=== PATIENT | female | born 1980 | race Caucasian/White ===

== ENCOUNTER 2018-12-11 03:39 | Emergency (ER) | payer MEDICAID, OTHER ==
[~2018-12-11] VITALS: Ht 165.1 cm; Wt 77.0 kg
[2018-12-11] MEDS ORDERED: TETRACAINE 0.5% OPHTH DROPS 4ML OP ONE (05:00)
[2018-12-11] MEDS ORDERED: HYDROCODONE/ACETAMINOPHEN 5/325MG TABLET PO ONE (05:00)
[2018-12-11] MEDS ORDERED: AMOXICILLIN/POTASSIUM CLAVULANATE 875/125MG TAB PO ONE (05:00)
[2018-12-11] MEDS ORDERED: FLUORESCEIN SODIUM 1MG/STRIP OP ONE (05:00)
[2018-12-11] MEDS ORDERED: BALANCED SALT IRRIG SOLN 15ML IO ONE (09:15)
[2018-12-11] MEDS ORDERED: HYDROCODONE/ACETAMINOPHEN 5/325MG TABLET PO STA (11:24)
[2018-12-11] MEDS ORDERED: BACITRACIN ZINC OINT UDPKT TOP ONE (12:30)
[2018-12-11 13:59] VITALS: BP 124/70
== END 2018-12-11 14:01 | disposition home or self-care (01) ==
LOC: ER 03:39
DX: S00.83XA Contusion of other part of head, initial encounter (principal); S61.452A Open bite of left hand, initial encounter; S91.151A Open bite of right great toe without damage to nail, initial encounter; H11.31 Conjunctival hemorrhage, right eye; Y08.89XA Assault by other specified means, initial encounter; Y93.89 Activity, other specified; Y92.9 Unspecified place or not applicable
CPT/HCPCS: 70450; 70486; 72125; 73630; 81025; 99284; A4217; Z7610